=== PATIENT | female | born 1995 | race Caucasian/White ===

== ENCOUNTER 2017-06-11 18:50 | Inpatient (IN) | payer BC, OTHER ==
[2017-06-11 19:14] LABS: #Basophils 0.1 thou/uL (0.0-0.2); #Eosinphils 0.1 thou/uL (0.0-0.7); #Monocytes 0.5 thou/uL (0.11-0.59); %Basophils 0.9 % (0.0-1.0); %Lymphocytes 44.9 % (28.0-48.0); %Monocytes 6.9 % (0.0-4.0); Hematocrit 38.4 % (36.0-47.0); Mean Platelet Volume 6.7 fL (7.4-10.4); Red Blood Cell (RBC) Count 4.09 mill/uL (4.00-5.20); White Blood Cell (WBC) Count 6.6 thou/uL (4.8-10.8)
[2017-06-11 19:19] LABS: PTT 23.9 SEC (22.9-36.1); Prothrombin Time 13.7 SEC (12.0-14.7)
--- NOTE | 2017-06-11 19:21 | CT ---
CT BRAIN NONCONTRAST: HISTORY: FINDINGS: The ventricles are normal in size and configuration. There is no midline shift or any other mass ef fect. There is no evidence of acute intracranial hemorrhage, large cortical infarct, or extraaxial fluid collection. The smith matter /white matter differentiation is maintained. The calvarium is in tact. The tympanomastoid cavities, and the upper portions of the paranasal sinuses included in thes e images, are grossly clear. There is focal right frontal scalp soft tissue swelling. The left nena bular condyle is fractured and severely displaced anteriorly relative to the mandibular ramus. The mandibular condyle is severely anteriorly dislocated from the TMJ. There is a minimally displaced f racture of the posterior wall of the left glenoid fossa (anterior wall of external auditory canal). IMPRESSION: 1. No acute intracranial findings. 2. Dislplaced fracture and dislocation of left temporomandibular joint. 2. Acute, traumatic mild superficial soft tissue contusion of the right frontal scalp. natasha POS: [facility]
[2017-06-11] MEDS ORDERED: Adacel (T-DAP) 0.5 ML VIAL ONE (19:27)
[2017-06-11] MEDS ORDERED: Lidocaine 1% PF 5 ML VIAL ONE (19:27)
[2017-06-11 19:37] LABS: ALT (SGPT) 83 U/L (8-55); AST (SGOT) 124 U/L (5-34); Alkaline Phosphatase 69 U/L (40-150); Anion Gap 13 mmol/L (10-20); BUN (Urea Nitrogen) 20 mg/dL (7.0-18.7); Bilirubin, Total 0.3 mg/dL (0.2-1.2); Calc. Creatinine Clearance 0 mL/min (70-130); Calcium 9.1 mg/dL (7.8-10.44); Carbon Dioxide 24 mmol/L (22-29); Chloride 104 mmol/L (98-107); Estimated GFR-MDRD Greater than 90; Globulin 2.8 g/dL (2.4-3.5); Lipase 68 U/L (8-78)
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
[2017-06-11] MEDS ORDERED: Ondansetron HCl/PF 4 MG/2 ML Vial IVP PRN (19:58)
[2017-06-11] MEDS ORDERED: Dextrose 50% Abboject 50 ML SYRINGE SLOW IVP PRN (19:58)
[2017-06-11] MEDS ORDERED: Dextrose 5% in Water 1,000 ML IV PRN (19:58)
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
[2017-06-11 21:06] LABS: Bilirubin Negative (Negative); Blood, Urine Large (Negative); Glucose, Urine (Dipstick) Negative (Negative); Ketone, Urine Negative (Negative); Nitrite Negative (Negative); Protein, Urine (Dipstick) 30 mg/dL (Neg-Trace); Urobilinogen 0.2 mg/dL (0.2-1.0)
[2017-06-11 21:16] LABS: Bacteria/HPF Rare-Few HPF (None Seen); RBC/HPF 21-50 HPF (0-3); Squamous Epithelial 0-3 HPF (0-3)
[2017-06-11 21:17] LABS: Hyaline Casts/LPF 0-3 HYALINE CAST LPF (0-3 Hyaline); Yeast-All Forms None Seen HPF (None Seen)
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
[2017-06-11] MEDS ORDERED: Famotidine/PF 20 mg/2ml Vial ONE (21:44)
[2017-06-12] MEDS: Sodium Chloride 0.9% 1,000 ML IV SCH ×2 (00:11→11:52)
[2017-06-12] MEDS: Acetaminophen 1,000 MG in Premix Bag 1 BAG IVPB SCH ×5 (00:12→21:37)
[2017-06-12] MEDS: Famotidine/PF 20 mg/2ml Vial SLOW IVP SCH ×3 (00:12→21:39)
[2017-06-12] MEDS: Ketorolac Tromethamine 30 MG/ML VIAL IVP PRN (01:31)
[2017-06-12 03:36] VITALS: BMI 19.7
[2017-06-12 05:29] LABS: #Lymphocytes 1.5 thou/uL (1.20-3.40); #Neutrophils 8.1 thou/uL (1.40-6.50); %Basophils 0.1 % (0.0-1.0); %Eosinophils 0.4 % (0.0-10.0); Hematocrit 33.7 % (36.0-47.0); Red Blood Cell (RBC) Count 3.56 mill/uL (4.00-5.20); White Blood Cell (WBC) Count 10.6 thou/uL (4.8-10.8)
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
[2017-06-12 05:53] LABS: Anion Gap 9 mmol/L (10-20); BUN (Urea Nitrogen) 22 mg/dL (7.0-18.7); Calc. Creatinine Clearance 94 mL/min (70-130); Calcium 8.7 mg/dL (7.8-10.44); Carbon Dioxide 26 mmol/L (22-29); Chloride 106 mmol/L (98-107); Estimated GFR-MDRD Greater than 90; Magnesium 2.2 mg/dL (1.7-2.2); Phosphorus 4.1 mg/dL (2.3-4.7)
[2017-06-12] MEDS ORDERED: FLU VACC QS2017-18 36 mo. & older 0.5 ML SYRINGE IM ONE (09:00)
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
[2017-06-13] MEDS: Sodium Chloride 0.9% 1,000 ML IV SCH ×3 (02:30→14:55)
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
[2017-06-13] MEDS: Ketorolac Tromethamine 30 MG/ML VIAL IVP PRN (04:39)
[2017-06-13] MEDS ORDERED: Chlorhexidine Gluconate 15 ML UDCUP SSP ONE (06:50)
[2017-06-13] MEDS ORDERED: Lidocaine 1% w/Epinephrine 1:200K 30 ML VIAL ONE (06:50)
[2017-06-13] MEDS ORDERED: Fentanyl 100 MCG/2 ML VIAL ONE ×2 (07:02→09:35)
[2017-06-13] MEDS ORDERED: Midazolam HCl 2 mg/2 ml Vial ONE ×2 (07:02→07:21)
[2017-06-13] MEDS ORDERED: Clindamycin/D5W 900 mg/50 ml Premix Bag ONE (07:19)
[2017-06-13] MEDS ORDERED: Dexamethasone 4 mg/ml Vial ONE ×2 (07:19→07:20)
[2017-06-13] MEDS ORDERED: Ketorolac Tromethamine 30 MG/ML VIAL ONE (07:47)
[2017-06-13] MEDS ORDERED: Ondansetron HCl/PF 4 MG/2 ML Vial ONE (07:47)
[2017-06-13] MEDS ORDERED: Propofol 200 MG/20 ML VIAL ONE (07:47)
[2017-06-13] MEDS ORDERED: Dexamethasone 20 MG/5 ML VIAL ONE (07:47)
[2017-06-13] MEDS ORDERED: Glycopyrrolate 0.2 MG/ML 5 ML SYRINGE ONE (07:47)
[2017-06-13] MEDS ORDERED: Lidocaine 2% PF 10 ML AMP (For Epidural Use) ONE (07:47)
[2017-06-13] MEDS ORDERED: Hydrocortisone 1% Cream 30 GM TUBE ONE (08:24)
[2017-06-13] MEDS: Famotidine/PF 20 mg/2ml Vial SLOW IVP SCH ×2 (08:55→20:33)
[2017-06-13] MEDS ORDERED: Promethazine HCl 25 MG/ML VIAL SLOW IVP PRN (10:27)
[2017-06-13] MEDS ORDERED: Promethazine HCl 25 MG/ML VIAL IM PRN (10:27)
[2017-06-13] MEDS ORDERED: Ondansetron HCl/PF 4 MG/2 ML Vial IVP PRN (10:27)
[2017-06-13] MEDS ORDERED: Morphine Sulfate 2 MG/ML SYRINGE SLOW IVP PRN (12:11)
[2017-06-13] MEDS ORDERED: Hydrocodone-Acetamin 15 ML UDCUP PO PRN (12:12)
[2017-06-13] MEDS: Dexamethasone 4 mg/ml Vial SLOW IVP SCH ×2 (14:48→21:15)
[2017-06-13] MEDS: Clindamycin 150 MG CAP PO SCH ×2 (14:48→21:15)
[2017-06-13] MEDS: Chlorhexidine Gluconate 15 ML UDCUP SSP SCH ×2 (15:39→20:34)
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
--- NOTE | 2017-06-13 19:33 | CT ---
CT FACIAL BONES: 06/13/17 HISTORY: Postop evaluation mandibular fracture. Comparison made to yesterday's CT facial bone exam. FINDINGS/IMPRESSION: The linear fracture through the anterior right mandible near the symphysis is again seen. There has been hardware placed in the mandible and maxilla for fixation. There has been extraction of a right mandibular molar since yesterday's exam. The displaced fracture of the left mandibular condyle is unchanged in appearance. POS: [facility]
[2017-06-14] MEDS: Sodium Chloride 0.9% 1,000 ML IV SCH (03:00)
[2017-06-14] MEDS: Dexamethasone 4 mg/ml Vial SLOW IVP SCH (05:59)
[2017-06-14] MEDS: Clindamycin 150 MG CAP PO SCH (05:59)
[2017-06-14 06:02] LABS: #Lymphocytes 0.9 thou/uL (1.20-3.40); #Monocytes 0.7 thou/uL (0.11-0.59); #Neutrophils 9.5 thou/uL (1.40-6.50); %Basophils 0.1 % (0.0-1.0); %Eosinophils 0.2 % (0.0-10.0); %Lymphocytes 7.7 % (28.0-48.0); %Monocytes 6.3 % (0.0-4.0); Hematocrit 30.4 % (36.0-47.0); Mean Platelet Volume 7.1 fL (7.4-10.4); Red Blood Cell (RBC) Count 3.22 mill/uL (4.00-5.20)
[2017-06-14] MEDS: Famotidine/PF 20 mg/2ml Vial SLOW IVP SCH (08:24)
[2017-06-14] MEDS: Chlorhexidine Gluconate 15 ML UDCUP SSP SCH (08:24)
--- NOTE | 2017-06-14 08:31 | PRG ---
DATE OF SERVICE: 06/14/2017 TIME: 07:57 a.m. SUBJECTIVE: No acute 24-hour events. The patient is postoperative day #1, status post extraction o f teeth 4, 5, and 30 and closed reduction of mandible fracture. The patient is voiding, ambulating, and tolerating p.o. No acute 24-hour events. OBJECTIVE: VITAL SIGNS: The patient's vital signs are stable. She is afebrile. She is awake, alert, and orie nted x3. GENERAL: She is in no acute distress. Arch bars in place. Her extraction sockets were hemostatic. The maxillomandibular fixation is adequately obtained with guiding elastics. NEUROLOGIC: Cranial nerves II-X are grossly intact. Patient does have difficulty hearing on left e ar, which ENT, Dr. Olea, has been consulted. ASSESSMENT: Doing well, status post extraction of fractured teeth and closed reduction of mandible fractures. PLAN: The patient is to follow up in my clinic in 1 week. Patient's mother was given a number to c all for appointment. I have called in prescriptions, Peridex one bottle 15 mL swish and spit t.i.d. for 1 week, as well as clindamycin 75 mg per 5 mL liquid, a 7-day supply was given, 20 mL p.o. q.8 hours x7 days. Also, Tylenol with Codeine elixir 120 mg/12 mg per 5 mL; I have given 200 mL; the pa tient is to take 10 mL p.o. q.4 to 6 hours p.r.n. pain.
[2017-06-14 12:55] VITALS: BP 112/71; TEMP 98.1
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
== END 2017-06-14 13:59 | disposition home or self-care (01) | DRG 965 ==
LOC: ERS 18:50 → SURG A 20:05
PROVIDERS: ADMIT Surgery; ATTEND Surgery
PROC: 0HQ1XZZ Repair Face Skin, External Approach (ICD-10-PCS; 2017-06-11)
PROC: 0NSV34Z Reposition Left Mandible with Internal Fixation Device, Percutaneous Approach (ICD-10-PCS; principal; 2017-06-13)
PROC: 0NST34Z Reposition Right Mandible with Internal Fixation Device, Percutaneous Approach (ICD-10-PCS; 2017-06-13)
PROC: 0CTX0Z0 Resection of Lower Tooth, Single, Open Approach (ICD-10-PCS; 2017-06-13)
PROC: 0CDWXZ1 Extraction of Upper Tooth, Multiple, External Approach (ICD-10-PCS; 2017-06-13)
DX: S02.622A Fracture of subcondylar process of left mandible, initial encounter for closed fracture (principal); S36.020A Minor contusion of spleen, initial encounter; S06.9X9A Unspecified intracranial injury with loss of consciousness of unspecified duration, initial encounter; S01.01XA Laceration without foreign body of scalp, initial encounter; S13.4XXA Sprain of ligaments of cervical spine, initial encounter; F07.81 Postconcussional syndrome; V03.19XA Pedestrian with other conveyance injured in collision with car, pick-up truck or van in traffic accident, initial encounter; Y93.02 Activity, running; Y92.410 Unspecified street and highway as the place of occurrence of the external cause; S02.601A Fracture of unspecified part of body of right mandible, initial encounter for closed fracture; S02.5XXA Fracture of tooth (traumatic), initial encounter for closed fracture; S01.81XA Laceration without foreign body of other part of head, initial encounter; L08.9 Local infection of the skin and subcutaneous tissue, unspecified; S80.212A Abrasion, left knee, initial encounter; S80.211A Abrasion, right knee, initial encounter; S00.511A Abrasion of lip, initial encounter; S30.810A Abrasion of lower back and pelvis, initial encounter; S00.81XA Abrasion of other part of head, initial encounter; Z23 Encounter for immunization
CPT/HCPCS: 12013; 36415; 70450; 70486; 71260; 72125; 74177; 80048; 80053; 81003; 81015; 83690; 83735; 84100; 84703; 85025; 85610; 85730; 86850; 86900; 86901; 90471; 90682; 90715; 96361; 96365; 96375; G0008; G0390; G8978-GP-CJ; G8979-GP-CJ; G8980-GP-CJ; G8987-GO-CI; G8988-GO-CI; G8989-GO-CI; J0131; J1100; J1885; J2001; J2250; J2270; J2405; J2704; J3010; J3490; Q2036; S0028